=== PATIENT | male | born 1985 ===

== ENCOUNTER 2022-11-28 15:12 | Emergency (ER) | payer OTHER ==
[~2022-11-28] VITALS: Ht 177.8 cm; Wt 89.0 kg
[2022-11-28] MEDS ORDERED: LISINOPRIL10 MG PO (17:08)
[2022-11-28] MEDS ORDERED: VOLTAREN1%GEL TOP (18:09)
[2022-11-28] MEDS ORDERED: FLEXERIL5 M1 PO (18:09)
[2022-11-28] MEDS ORDERED: IBUPROFEN600 MG PO (18:09)
[2022-11-28 18:19] VITALS: BP 133/84
== END 2022-11-28 18:29 | disposition home or self-care (01) | DRG 563 ==
LOC: ED 15:12
DX: S39.012A Strain of muscle, fascia and tendon of lower back, initial encounter (principal); I10 Essential (primary) hypertension; Y35.811A Legal intervention involving manhandling, law enforcement official injured, initial encounter; Y92.89 Other specified places as the place of occurrence of the external cause